=== PATIENT | male | born 1940 | race Caucasian/White ===

== ENCOUNTER 2016-08-17 08:20 | Emergency (ER) | payer MEDICAID ==
[~2016-08-17] VITALS: Wt 76.0 kg
[~2016-08-17 08:20] MED LIST: AMLO5TAB4 PO; COLC0.6T6 PO; OMEP20CA9 PO
[2016-08-17 10:28] LABS: URINE BLOOD (Dip) POC Negative (NEGATIVE)
[2016-08-17] MEDS ORDERED: DOXY100T20 PO (10:42)
[2016-08-17 10:47] VITALS: BP 132/76; PULSE 76; RESP 18; TEMP 98
--- NOTE | 2016-08-17 19:53 | ERD ---
ER Documentation Chief Complaint Date/Time DATE: 08/17/16 TIME: 19:49 Chief Complaint DYSURIA X 1 WEEK HPI This patient is a 76-year-old male with history of hypertension and chronic dysuria presenting to the emergency department for burning on urination which is been ongoing intermittently for 1 year. The patient also reports nocturnal urination about 6 times in the middle the night. The patient has seen his primary care doctor for this issue. The patient has taken no medications for relief of his symptoms. The patient denies any chest pain, shortness of breath , hematuria, history of prostate issues, or other symptoms at this time. ROS All systems reviewed and are negative except as per history of present illness. Medications Home Meds Active Scripts Doxycycline Hyclate* (Doxycycline Hyclate*) 100 Mg Tablet.dr, 100 MG PO BID for 10 Days, #20 TAB Prov:LITA FLORES PA-C 08/17/16 Reported Medications Amlodipine Besylate* (Norvasc*) 5 Mg Tablet, 5 MG PO DAILY, TAB 03/28/14 Omeprazole* (Prilosec*) 20 Mg Capsule.dr, 20 MG PO DAILY AC MEAL, CAP 03/28/14 Colchicine* (Colcrys*) 0.6 Mg Tablet, 0.6 MG PO DAILY, TAB 03/28/14 Allergies Allergies: Coded Allergies: No Known Allergy (Unverified , 08/17/16) PMhx/Soc History of Surgery: Yes (LEFT HAND,LEFT KNEE SURGERY) Anesthesia Reaction: No Hx Neurological Disorder: No Hx Respiratory Disorders: Yes (BRONCHITIS) Hx Cardiac Disorders: Yes (HTN) Hx Psychiatric Problems: No Hx Miscellaneous Medical Probl: No Hx Alcohol Use: No Hx Substance Use: No Hx Tobacco Use: No Smoking Status: Never smoker FmHx Noncontributory for chief complaint Physical Exam Vitals Vital Signs Date Time Temp Pulse Resp B/P Pulse Ox O2 Delivery O2 Flow Rate FiO2 08/17/16 10:47 98.0 76 18 132/76 99 Room Air 08/17/16 08:22 98.0 75 18 124/71 99 Physical Exam INITIAL VITAL SIGNS: Reviewed by me. GENERAL: Alert and interactive. No acute distress. HEAD: Head is normocephalic and atraumatic. EYES: EOMI. No scleral icterus. No conjunctival injection. ENT: Moist mucosa. NECK: Supple. Full range of motion. RESPIRATORY: Normal respiratory effort. Clear breath sounds bilaterally. No wheezing, rales, or rhonchi. CV: Regular rate and rhythm. Normal S1 S2. No S3 or S4. No murmurs. ABDOMEN: Soft, non-distended, non-tender. No guarding. No rebound. No masses. EXTREMITIES: No deformity. SKIN: Warm and dry. NEUROLOGIC: Alert and oriented x 4. Speech is normal. Moves all extremities equally. No motor or sensory deficits noted. Results 24 hrs Laboratory Tests Test 08/17/16 10:30 Bedside Urine Blood Negative Bedside Urine Glucose (UA) Negative Bedside Urine Ketones (LAB) Negative Bedside Urine Leukocyte Esterase (L Negative Bedside Urine Nitrite (LAB) Negative Bedside Urine Protein (LAB) 2+ Bedside Urine pH (LAB) 6.0 Procedures/MDM 76-year-old male presents secondary to complaints of dysuria. On physical examination the patient's vitals are within normal limits. Urinalysis is not concerning for urinary tract infection. Given the patient's history and physical examination I will prescribe him 10 days of doxycycline for any possible prostatitis. The patient was given urology referral and should follow- up as an outpatient. I have low suspicion for significant prostatic infection, septicemia, orchitis, or other emergent conditions. The patient will be given prescriptions for doxycycline. The patient is stable for outpatient management. The patient agrees with the diagnosis and discharge plan. The patient was advised to return to the department immediately with any new or worsening symptoms. The patient demonstrates understanding of this information. All questions and concerns were addressed and the patient was hemodynamically stable prior to discharge. Departure Diagnosis: Primary Impression: Dysuria Condition: Fair Patient Instructions: Dysuria Referrals: [facility] YOU HAVE RECEIVED A MEDICAL SCREENING EXAM AND THE RESULTS INDICATE THAT YOU DO NOT HAVE A CONDITION THAT REQUIRES URGENT TREATMENT IN THE EMERGENCY DEPARTMENT. FURTHER EVALUATION AND TREATMENT OF YOUR CONDITION CAN WAIT UNTIL YOU ARE SEEN IN YOUR DOCTORS OFFICE WITHIN THE NEXT 1-2 DAYS. IT IS YOUR RESPONSIBILITY TO MAKE AN APPOINTMENT FOR FOLOW-UP CARE. IF YOU HAVE A PRIMARY DOCTOR --you should call your primary doctor and schedule an appointment IF YOU DO NOT HAVE A PRIMARY DOCTOR YOU CAN CALL OUR PHYSICIAN REFERRAL HOTLINE AT IF YOU CAN NOT AFFORD TO SEE A PHYSICIAN YOU CAN CHOSE FROM THE FOLLOWING [facility] [address] [facility] [address] [facility] [address] [facility] [address] [facility] [address] [facility]. [facility] [address] Additional Instructions: No mas mejor en 2-3 tavarez, regresar. Mas peor en 24 horas, regresear rapidamente. Ir a doctor primario in 5-7 tavarez. Usar instrucciones cuando charan medicamento. LITA FLORES PA-C Aug 17, 2016 19:53
== END 2016-08-17 10:48 | disposition home or self-care (01) ==
LOC: FTE 08:20
DX: R30.0 Dysuria (principal); I10 Essential (primary) hypertension
CPT/HCPCS: 81003; Z7502; 99283

== ENCOUNTER 2017-12-06 05:52 | Emergency (ER) | END 2017-12-06 07:59 | disposition home or self-care (01) ==

== ENCOUNTER 2017-12-08 13:35 | Emergency (ER) | END 2017-12-08 16:27 | disposition home or self-care (01) ==

== ENCOUNTER 2018-09-20 06:27 | Emergency (ER) | payer SELFPAY ==
[~2018-09-20] VITALS: Ht 167.6 cm; Wt 68.2 kg
[~2018-09-20 06:27] MED LIST changes: +CIPR500T4 PO; +DOXY100T20 PO; +POLY17PO6 PO; +TAMS-14 PO
[2018-09-20 06:36] VITALS: Ht 167.6 cm; Wt 68.2 kg
[2018-09-20] MEDS ORDERED: KETOROLAC 15 MG INJ IM STA (07:24)
[2018-09-20] MEDS ORDERED: LIDOCAINE 1% (MDV) 10 ML INJ INJ STA (07:29)
--- NOTE | 2018-09-20 07:33 | ERD ---
ER Documentation Chief Complaint Chief Complaint LT KNEE PAIN WITH FREQUENT NEED FOR DRAINAGE. SX IN 3 DAYS HPI 78-year-old male with a history of hypertension, osteoarthritis and recurrent left knee effusions presents the ED complaining of a 3-day history of increasing pain and swelling of his left knee. Denies trauma. Pain is severe, sharp and pressure-like, nonradiating and exacerbated by movement and weightbearing. No relieving factors. No other joint pain or swelling. Patient reports multiple prior arthrocentesis with relief of symptoms. Patient states he is awaiting scheduling for a knee replacement. Denies chest pain, palpitations, shortness of breath, abdominal pain, nausea, vomiting, fevers or chills. ROS All systems reviewed and are negative except as per history of present illness. Medications Home Meds Active Scripts Tamsulosin Hcl* (Flomax*) 0.4 Mg Cap.er.24h, 0.4 MG PO QPM, #15 CAP Prov:LEANNA PAGAN MD 12/08/17 Polyethylene Glycol* (Miralax*) 17 Gm Powd.pack, 17 GM PO DAILY, #7 Prov:LEE PEOPLES DO 12/06/17 Ciprofloxacin Hcl* (Ciprofloxacin Hcl*) 500 Mg Tablet, 500 MG PO BID for 7 Days, TAB Prov:LEE PEOPLES DO 12/06/17 Doxycycline Hyclate* (Doxycycline Hyclate*) 100 Mg Tablet.dr, 100 MG PO BID for 10 Days, #20 TAB Prov:LITA FLORES PA-C 08/17/16 Reported Medications Amlodipine Besylate* (Norvasc*) 5 Mg Tablet, 5 MG PO DAILY, TAB 03/28/14 Omeprazole* (Prilosec*) 20 Mg Capsule.dr, 20 MG PO DAILY AC MEAL, CAP 03/28/14 Colchicine* (Colcrys*) 0.6 Mg Tablet, 0.6 MG PO DAILY, TAB 03/28/14 Allergies Allergies: Coded Allergies: No Known Allergy (Unverified , 08/17/16) PMhx/Soc History of Surgery: Yes (LEFT HAND,LEFT KNEE SURGERY) Anesthesia Reaction: No Hx Neurological Disorder: No Hx Respiratory Disorders: Yes (BRONCHITIS) Hx Cardiac Disorders: Yes (HTN) Hx Psychiatric Problems: No Hx Miscellaneous Medical Probl: No Hx Alcohol Use: No Hx Substance Use: No Hx Tobacco Use: No Smoking Status: Never smoker FmHx No cancer or stroke Physical Exam Vitals Vital Signs Date Temp Pulse Resp B/P (MAP) Pulse Ox O2 O2 Flow FiO2 Time Delivery Rate 09/20/18 70 17 145/78 100 Room Air 11:51 (100) 09/20/18 65 17 155/76 100 Room Air 10:05 (102) 09/20/18 78 17 146/77 100 Room Air 07:22 (100) 09/20/18 97.7 76 16 132/72 98 06:36 (92) Physical Exam Const: Moderate distress due to pain Head: Atraumatic Eyes: Normal Conjunctiva ENT: Normal External Ears, Nose and Mouth. Neck: Full range of motion. Nontender. Resp: Breath sounds are equal and clear to auscultation bilaterally Cardio: Regular rate and rhythm, no murmurs Abd: Soft, non tender, non distended. Normal bowel sounds Skin: No petechiae or rashes Back: No midline or flank tenderness Ext: Left knee: Large joint effusion. Diffuse swelling and tenderness. No erythema or warmth. Decreased range of motion. Distal neurovascular intact. No hip or ankle swelling or tenderness. Neur: Awake and alert. No focal deficit Psych: Normal Mood and Affect Results 24 hrs Laboratory Tests Test 09/20/18 09:30 Body Fluid Type OTHERS Body Fluid Volume 60.0 ml Body Fluid Color RED Body Fluid Appearance HAZY Body Fluid WBC 22 /cmm Body Fluid RBC (Auto) 74038 /uL Body Fluid Polynuclear WBCs (%) 94.6 % Body Fluid Mononuclear Cells % Auto 5.4 % Current Medications Medications Dose Sig/Charlie Start Time Status Last (Trade) Ordered Route PRN Stop Time Admin Dose Reason Admin Ketorolac 15 mg ONCE STAT 09/20/18 DC 09/20/18 Tromethamine IM 07:24 07:53 (Toradol) 09/20/18 07:26 Lidocaine 10 ml ONCE STAT 09/20/18 DC HCl INJ 07:29 (Lidocaine 09/20/18 07:34 1% (Mdv) 10 ml) Lidocaine 1 ml ONCE INJ 09/20/18 DC (Xylocaine 08:00 1% (Mdv) 20 09/20/18 08:01 ml) 1 tab ONCE ONCE 09/20/18 DC 09/20/18 Acetaminophen PO 10:00 09:56 / 09/20/18 10:01 Hydrocodone Bitart ([place] (0/362)) Procedures/MDM DOCUMENTS REVIEWED: ED nurse, prior records IMAGING: PROCEDURE: XR Knee. CLINICAL INDICATION: Pain and swelling TECHNIQUE: Three views of the left knee are available for review. COMPARISON: 03/28/2014 FINDINGS: There is no definite acute fracture or dislocation. Again noted is severe joint space narrowing of the medial compartment with increased irregularity of the subchondral surface, osseous spurring, and subchondral sclerosis. There is increased varus deformity of the knee. There is a linear lucency at the peripheral margin of the medial tibial plateau which may be from an old fracture. Mild joint space narrowing of the lateral compartment is also present with chondrocalcinosis. There is also mild joint space narrowing of the patellofemoral compartment with a large osteochondral body inferior to the patella measuring about 2.2 cm. Smaller osteochondral bodies are also noted around the knee joint anteriorly and posteriorly. There is a large joint effusion. The soft tissues are otherwise unremarkable. RPTAT: ZZ IMPRESSION: 1. No definite acute fracture. 2. Progression of the severe medial compartment osteoarthrosis with an old fracture of the peripheral margin of the medial tibial plateau and increased varus deformity. 3. Mild to moderate osteoarthrosis of the patellofemoral and lateral anais rtments with chondrocalcinosis. 4. Osteochondral bodies around the knee more prominent inferior to the patella measuring up to 2.2 cm. 5. Increased size of the joint effusion - large. If there is a history of acute injury, a follow-up CT or MRI may be obtained for additional evaluation. .Jennifer Evans MD, MD Date Time Electronically viewed and signed by .Jennifer Evans MD, on 09/20/2018 08:34 .T/ Arthrocentesis by me: Patient consented, sterilely draped, full prep, time out performed. Anesthesia: 1% lidocaine locally Location: Left knee Technique: 18 gauge needle aspiration Results: 175 ml of bloody serous fluid Complications: Minimal bleeding. No complications. MEDICAL DECISION MAKIN-year-old male with a history of hypertension, osteoarthritis and recurrent left knee effusions presents the ED complaining of a 3-day history of increasing pain and swelling of his left knee. X-ray findings as above with no evidence of acute fracture. Arthrocentesis performed with significant relief of pain. There is no evidence of septic arthritis. Considering the patient's history, gout/pseudogout unlikely. Stable for discharge with appropriate analgesics and outpatient follow-up as counseled. Stable for discharge with precautionary instructions and outpatient follow-up as counseled. Counseled patient regarding diagnostic workup, diagnosis and need for followup. Understands to return to ED if symptoms recur, worsen or any other concerns. 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
[2018-09-20] MEDS ORDERED: LIDOCAINE 1% (MDV) 20 ML INJ INJ SCH (08:00)
[2018-09-20] MEDS ORDERED: HYDROCODONE/APAP (5/325) TAB PO ONE (10:00)
[2018-09-20 11:51] VITALS: BP 145/78; PULSE 70; RESP 17
== END 2018-09-20 12:00 | disposition home or self-care (01) ==
LOC: E/R 06:27
DX: M25.562 Pain in left knee (principal); I10 Essential (primary) hypertension; M25.462 Effusion, left knee
CPT/HCPCS: 20610; 73562; 87070; 89051; 89060; 96372; 99284; J1885